=== PATIENT | female | born 1945 | race American Indian/Alaskan Native ===

== ENCOUNTER 2018-10-26 18:28 | Inpatient (IN) | payer MEDICARE ==
--- NOTE | 2018-10-26 18:47 | Event Note ---
ED Screening Note ED Screening Note: pt presents SOB x 1 month chest pain chronic abdominal pain generalized weakness nausea/vomiting no diarrhea PMHx DM, HTN non smoker non drinker no drug use This initial assessment/diagnostic orders/clinical plan/treatment(s) is/are subject to change based on patients health status, clinical progression and re- assessment by fellow clinical providers in the ED. Further treatment and workup at subsequent clinical providers discretion. Patient/guardian urged not to elope from the ED as their condition may be serious if not clinically assessed and managed. Initial orders include: CP protocol
[2018-10-26 19:16] LABS: Basophils # (Auto) 0.1 K/mm3 (0.0-0.1); Basophils % (Auto) 1.4 % (0.0-1.8); Eosinophils # (Auto) 0.1 K/mm3 (0.0-0.4); Eosinophils % (Auto) 1.3 % (0.0-4.3); Hemoglobin 11.6 gm/dl (10.1-14.3); Lymphocytes # (Auto) 2.3 K/mm3 (1.2-5.4); Mean Corpuscular HGB Conc 34 % (30-34); Mean Corpuscular Volume 86 fl (79-97); Monocytes # (Auto) 0.3 K/mm3 (0.0-0.8); Monocytes % (Auto) 5.3 % (0.0-7.3); Platelet Count 234 K/mm3 (140-440); Red Blood Count 3.98 M/mm3 (3.65-5.03); Red Cell Distribution Width 13.9 % (13.2-15.2)
--- NOTE | 2018-10-26 19:53 | XRay Report ---
CHEST 2 VIEWS INDICATION / CLINICAL INFORMATION: Chest pain. Shortness of breath. History of hypertension. COMPARISON: None available. FINDINGS: SUPPORT DEVICES: None. HEART / MEDIASTINUM: There is moderate to severe cardiomegaly with mild aortic atherosclerosis. LUNGS / PLEURA: Bilateral interstitial opacities likely represent atelectasis/edema. No significant p leural effusion. No pneumothorax. ADDITIONAL FINDINGS: No significant additional findings. IMPRESSION: Moderate to severe cardiomegaly with mild edema versus atelectasis. Signer Name: Marc Weber MD Signed: 10/26/2018 7:49 PM Workstation Name: [id number]
[2018-10-26] MEDS ORDERED: LASIX IV ONE (20:22)
[2018-10-26 20:38] LABS: Alanine Aminotransferase 19 units/L (7-56); Albumin 3.6 g/dL (3.9-5); BUN/Creatinine Ratio 13; Blood Urea Nitrogen 16 mg/dL (7-17); Calcium 9.6 mg/dL (8.4-10.2); Hemolysis Index 7
--- NOTE | 2018-10-26 21:21 | Emergency Department Report ---
ED Abdominal Pain HPI - General Chief Complaint: Abdominal Pain Stated Complaint: WEAKNESS/SOB/KNEE/STOMACH PAIN Time Seen by Provider: 10/26/18 18:44 Source: patient Mode of arrival: Wheelchair Limitations: No Limitations - History of Present Illness Initial Comments: patient presents to ER with short of breath, leg swelling, abdominal pain and increase abd girth. She has htn, chf, a-fib, all untreated because she went to vacation in [place] and took herself off her meds. She has a h/o abdominal wall hernia repaired a few years ago but for the past week has noticed some drainage at the site. no fever, chills or night sweats. MD Complaint: abdominal pain -: Gradual Location: periumbilical Radiation: none Migration to: no migration Severity scale (0 -10): 5 Quality: stabbing Consistency: intermittent Improves With: nothing Worsens With: nothing - Related Data Allergies Allergy/AdvReac Type Severity Reaction Status Date / Time hydromorphone [From Dilaudid] Allergy Hives Verified 10/26/18 18:32 morphine Allergy Hives Verified 10/26/18 18:32 ED Review of Systems ROS: Stated complaint: WEAKNESS/SOB/KNEE/STOMACH PAIN Other details as noted in HPI Comment: All other systems reviewed and negative Respiratory: orthopnea, SOB with exertion, SOB at rest Cardiovascular: chest pain, palpitations, dyspnea on exertion, edema Endocrine: denies: flushing Gastrointestinal: abdominal pain, nausea ED Past Medical Hx - Past Medical History Hx Hypertension: Yes Hx Diabetes: Yes - Surgical History Hx Cholecystectomy: Yes Hx Appendectomy: Yes Additional Surgical History: HERNIA TONSILS - Social History Smoking Status: Never Smoker Substance Use Type: None ED Physical Exam - General Limitations: No Limitations General appearance: alert, in no apparent distress - Head Head exam: Present: atraumatic, normocephalic - Eye Eye exam: Present: normal appearance - ENT ENT exam: Present: normal exam, normal orophraynx - Respiratory Respiratory exam: Present: decreased breath sounds - Cardiovascular Cardiovascular Exam: Present: irregular rhythm, JVD (moderate on both sides) - GI/Abdominal GI/Abdominal exam: Present: soft, hernia, other (mild post surgical wound dehiscence) - Extremities Exam Extremities exam: Present: pedal edema (2 plus) - Neurological Exam Neurological exam: Present: alert, oriented X3, CN II-XII intact - Skin Skin exam: Present: warm, dry ED Course Vital Signs 10/26/18 10/26/18 18:45 21:01 Temperature 98.3 F Pulse Rate 78 Respiratory 16 19 Rate Blood Pressure 198/105 [Left] O2 Sat by Pulse 97 Oximetry ED Medical Decision Making - Lab Data Result diagrams: 10/26/18 18:56 10/26/18 18:56 - EKG Data -: EKG Interpreted by Me Rate: tachycardia - EKG Data When compared to previous EKG there are: previous EKG unavailable Interpretation: other (atrial fibrillation) - Radiology Data Radiology results: report reviewed interpreted by me: severe cardiomegaly, mild edema severe cardiomegaly, mild edema ct: abd/pelv abdominal wall abscess. - Medical Decision Making 73 y.o patient presents to ER with short of breath, leg swelling, abdominal pain and increase abd girth. She has htn, chf, a-fib, all untreated because she went to vacation in [place] and took herself off her meds. She has a h/o abdominal wall hernia repaired a few years ago but for the past week has noticed some drainage at the site. no fever, chills or night sweats. several issues were addressed during this ER visits. edema: chf exacerbation, evidence on cxr and bnp, lasix 40mg iv given, [place] [facility] [place]ib: not on any rate medication, not on anticoagulation, needs admission for stabilization, risk straterizations for poss anti coag. not in rvr. abd wall abscess: started on clindamycin, surgery consulted. htn: labile, metoprolol 2.5mg iv given, monitor closely, admit for further txt. Medication non compliance: advised. - Differential Diagnosis acs,abscess, labile htn, chf exacerbation. Critical care attestation.: If time is entered above; I have spent that time in minutes in the direct care of this critically ill patient, excluding procedure time. ED Disposition Clinical Impression: Labile essential hypertension, Atrial fibrillation by electrocardiogram, Abdominal wall abscess at site of surgical wound Acute exacerbation of CHF (congestive heart failure) Qualifiers: Heart failure type: systolic Qualified Code(s): I50.23 - Acute on chronic systolic (congestive) heart failure Disposition: OP ADMIT IP TO THIS HOSP Is pt being admited?: Yes Does the pt Need Aspirin: Yes Condition: Stable Instructions: Abdominal Pain (ED), Hypertension (ED) Referrals: PRIMARY CARE, [Primary Care Provider] - 3-5 Days
--- NOTE | 2018-10-26 22:23 | Cat Scan Report ---
CT ABDOMEN AND PELVIS WITH CONTRAST INDICATION / CLINICAL INFORMATION: abd pain, abd hernia dehiscence. TECHNIQUE: Axial CT images were obtained through the abdomen and pelvis after 100 cc Omnipaque 300 milligrams pe rcent IV contrast. All CT scans at this location are performed using CT dose reduction for ALARA by means of automated exposure control. COMPARISON: None available. FINDINGS: A small fluid collection subcutaneous tissues midline with extensive reticulation of fat an d soft tissue density worrisome for a subcutaneous abscess in a region of previous hernia repair LOWER CHEST: A small right pleural effusion is present. LIVER: No significant abnormality. GALLBLADDER: Previous cholecystectomy BILE DUCTS: No significant abnormality. PANCREAS: No significant abnormality. SPLEEN: No significant abnormality. ADRENALS: No significant abnormality. RIGHT KIDNEY and URETER: No significant abnormality. LEFT KIDNEY and URETER: 0.59 cm calculus lower pole left kidney STOMACH and SMALL BOWEL: No significant abnormality. COLON: Diverticulosis of the descending colon and sigmoid colon present APPENDIX: No significant abnormality. PERITONEUM: No free fluid. No free air. No fluid collection. LYMPH NODES: No significant adenopathy. AORTA and ARTERIES: No significant abnormality. IVC and VEINS: No significant abnormality. URINARY BLADDER: No significant abnormality. REPRODUCTIVE ORGANS: No significant abnormality. ADDITIONAL FINDINGS: None. SKELETAL SYSTEM: Degenerative changes lumbar sacral spine present IMPRESSION: 1. Anterior abdominal wall process worrisome for a small abscess 2. Left renal calculus 3. Diverticulosis sigmoid colon and descending colon 4. Small right pleural effusion 2 left renal calculus 3. Diverticulosis Signer Name: Lj Chavez MD Signed: 10/26/2018 10:19 PM Workstation Name: [id number]
[2018-10-26] MEDS ORDERED: CLEOCIN 600 MG/50 mL 600 MG/50 ML BAG IV ONE (22:29)
[2018-10-26] MEDS ORDERED: LOPRESSOR IV ONE (23:30)
[2018-10-26] MEDS ORDERED: SODIUM CHLORIDE FLUSH SYRINGE 10 ML IV PRN (23:45)
[2018-10-26] MEDS ORDERED: D50W (25GM) Syringe IV PRN (23:45)
--- NOTE | 2018-10-26 23:59 | History and Physical Report ---
History of Present Illness Date of examination: 10/26/18 History of present illness: 73-year-old woman with a history of hypertension, diabetes, CHF, CVA comes to the emergency room with complaints of shortness of breath 2 weeks, PND, orthopnea. She states she was diagnosed with CHF and has not taken any diuretic in 2 years ago. She recently relocated to [place]. Also complaining of abdominal pain 2 weeks, mid abdomen, sharp, intermittent very 15 minutes, no radiation, cannot identify exacerbating or relieving factors. She had a hernia repair in 2017, since then she's had purulent drainage from the surgical site. She states sometimes the drainage is bloody. She has not taken any antibiotic for the drainage from the surgical site, states she keeps the area clean. Located intermittent pain around her surgical site. Denies history of A. fib Review Of Systems: Constitutional: no weight loss, fever, chills Ears, eyes, nose, mouth and throat: no nasal congestion, no nasal discharge, no sinus pressure, blurry vision, diplopia Neck: No neck pain or rigidity. Cardiovascular: No palpitations, chest pain Respiratory: No shortness of breath, cough Gastrointestinal: No hematochezia, abdominal pain Genitourinary : no dysuria, frequency , hematuria Musculoskeletal: no muscle ache , joint pain Integumentary: no rash, no pruritis Neurological: no parathesias, focal weakness Endocrine: no cold or heat intolerance, no polyuria or polydipsia Hematologic/Lymphatic: no easy bruising, no easy bleeding, no gland swelling Allergic/Immunologic: no urticaria, no angioedema. PAST MEDICAL HISTORY:hypertension, diabetes, CHF, CVA PAST SURGICAL HISTORY: Cholecystectomy, appendectomy, hernia repair, tonsillectomy FAMILY HISTORY:hypertension, diabetes SOCIAL HISTORY: Denies tobacco, drugs, alcohol Medications and Allergies Allergies Allergy/AdvReac Type Severity Reaction Status Date / Time hydromorphone [From Dilaudid] Allergy Hives Verified 10/26/18 18:32 morphine Allergy Hives Verified 10/26/18 18:32 Active Meds: Active Medications Acetaminophen (Tylenol) 650 mg PO Q4H PRN PRN Reason: Pain MILD(1-3)/Fever >100.5/[facility] Aspirin (Aspirin) 325 mg PO QDAY [facility]AT Aspirin (Baby Aspirin) 81 mg PO QDAY [facility] Carvedilol (Coreg) 3.125 mg PO BID [facility] Dextrose (D50w (25gm) Syringe) 50 ml IV PRN PRN PRN Reason: Hypoglycemia Enoxaparin Sodium (Lovenox) 30 mg SUB-Q QDAY [facility] Furosemide (Lasix) 40 mg IV BID@0600,1800 [facility] Piperacillin Sod/Tazobactam Sod (Zosyn/Ns 4.5gm/100ml) 4.5 gm in 100 mls @ 200 mls/hr IV Q8HR [facility]AT; Protocol Insulin Human Lispro (Humalog) 0 unit SUB-Q ACHS [facility]; Protocol Lisinopril (Zestril) 2.5 mg PO QDAY [facility] Ondansetron HCl (Zofran) 4 mg IV Q8H PRN PRN Reason: Nausea And Vomiting Sodium Chloride (Sodium Chloride Flush Syringe 10 Ml) 10 ml IV BID [facility] Sodium Chloride (Sodium Chloride Flush Syringe 10 Ml) 10 ml IV PRN PRN PRN Reason: LINE FLUSH Exam - Physical Exam Narrative exam: General Apperance: The patient sitting in bed no acute distress HEENT: Normocephalic, atraumatic. Pupils equally round and reactive to light, extraocular movement intact, and no sclericterus or JVD or thyromegaly or nodule. Neck supple, no carotid bruit, mucous membranes moist, no exudate or erythema Heart: S1-S2, regular is rhythm Lungs: Clear to auscultation bilaterally, breathing comfortable Abdomen: Positive bowel sounds, soft, nontender, nondistended, no organomegaly Extremities: No edema cyanosis clubbing Skin: no rash, nodule, warm and dry Neuro:CN 2 -12 intact, /sensory intact, speech is fluent - Constitutional Vitals: Temp Pulse Resp BP Pulse Ox 98.3 F 78 19 198/105 97 10/26/18 18:45 10/26/18 18:45 10/26/18 21:01 10/26/18 18:45 10/26/18 18:45 Results - Labs CBC & Chem 7: 10/26/18 18:56 10/26/18 18:56 Labs: Abnormal lab results 10/26/18 10/26/18 Range/Units 18:56 18:56 Lymph % (Auto) 41.0 H (13.4-35.0) % Glucose 197 H (65-100) mg/dL NT-Pro-B Natriuret Pep 2408 H (0-900) pg/mL Albumin 3.6 L (3.9-5) g/dL Lipase 6 L (13-60) units/L - Imaging and Cardiology EKG: image reviewed Chest x-ray: image reviewed CT scan - abdomen: report reviewed CT scan - pelvis: report reviewed Assessment and Plan Assessment Acute on chronic CHF Abdominal abscess Atrial fibrillation Hypertension Diabetes History of CVA Plan Admit medicine Diuresed with IV Lasix Her beta srinivas KT inhibitor, aspirin Check cardiac enzymes, echo, TSH, consult cardiology Start full dose Lovenox, check Hba1c Start IV Zosyn, follow cultures, surgery was consulted. Chest fingersticks and initiate insulin sliding scale DVT prophylaxis
[2018-10-27] MEDS ORDERED: LOPRESSOR IV ONE (00:14)
[2018-10-27 00:52] LABS: Creatine Kinase MB 2.6 ng/mL (0.0-4.0)
[2018-10-27] MEDS ORDERED: APRESOLINE IV ONE ×2 (00:57→01:36)
[2018-10-27] MEDS ORDERED: LOVENOX SUB-Q SCH ×2 (01:00→10:00)
[2018-10-27] MEDS ORDERED: APRESOLINE ONE ×2 (01:03→01:46)
[2018-10-27 01:06] LABS: Bilirubin,Urine NEG (Negative); Blood,Urine NEG (Negative); Color,Urine Colorless (Yellow); Protein,Urine <15 mg/dL mg/dL (Negative); Urobilinogen,Urine < 2.0 mg/dL (<2.0); WBC,Urine < 1.0 /HPF (0.0-6.0)
[2018-10-27] MEDS ORDERED: ZOFRAN ONE (02:11)
[2018-10-27] MEDS: ZOFRAN IV PRN (02:15)
[2018-10-27] MEDS: LOVENOX SUB-Q SCH ×6 (05:28→22:08)
[2018-10-27] MEDS: ZOSYN/NS 4.5GM/100ML 4.5 GM/100 ML VIAL IV SCH ×3 (05:29→22:09)
[2018-10-27] MEDS: LASIX IV SCH ×2 (05:30→18:12)
[2018-10-27 05:55] LABS: Basophils # (Auto) 0.1 K/mm3 (0.0-0.1); Basophils % (Auto) 1.3 % (0.0-1.8); Eosinophils # (Auto) 0.1 K/mm3 (0.0-0.4); Eosinophils % (Auto) 1.3 % (0.0-4.3); Hematocrit 33.9 % (30.3-42.9); Hemoglobin 11.4 gm/dl (10.1-14.3); Lymphocytes # (Auto) 2.2 K/mm3 (1.2-5.4); Lymphocytes % (Auto) 38.1 % (13.4-35.0); Mean Corpuscular HGB Conc 34 % (30-34); Mean Corpuscular Volume 86 fl (79-97); Monocytes # (Auto) 0.3 K/mm3 (0.0-0.8); Platelet Count 234 K/mm3 (140-440); Red Blood Count 3.95 M/mm3 (3.65-5.03); Red Cell Distribution Width 13.9 % (13.2-15.2)
[2018-10-27 06:12] LABS: Creatine Kinase MB 2.7 ng/mL (0.0-4.0)
[2018-10-27 06:21] LABS: BUN/Creatinine Ratio 17; Blood Urea Nitrogen 15 mg/dL (7-17); Calcium 9.3 mg/dL (8.4-10.2); Hemolysis Index 9
[2018-10-27] MEDS: HumaLOG SUB-Q SCH ×4 (09:20→22:08)
--- NOTE | 2018-10-27 09:28 | Consultation ---
History of Present Illness Consult date: 10/27/18 Consult reason: congestive heart failure History of present illness: Patient is a 73-year old morbidly obese woman who gives a cardiac history of CHF and atrial fibrillation. Patient reports she is not on any home medications and reports she is no longer followed by [facility] in [place] due to insurance issues. Co-morbidities includes prior CVA, Hypertension and Diabetes. Patient presents to this hospital with multiple complaints. Patient complained of abdominal pain, generalized weakness, shortness of breath and lower extremity edema. A cardiac consultation has been requested for CHF evaluation. Chest x-ray shows cardiomegaly with interstitial edema. Labs shows an elevated BNP. Her ECG is atrial fibrillation with a well controlled ventricular rate. Past History Past Medical History: atrial fib, diabetes, heart failure, hypertension, stroke Medications and Allergies Allergies Allergy/AdvReac Type Severity Reaction Status Date / Time hydromorphone [From Dilaudid] Allergy Hives Verified 10/26/18 18:32 morphine Allergy Hives Verified 10/26/18 18:32 Active Meds: Active Medications Acetaminophen (Tylenol) 650 mg PO Q4H PRN PRN Reason: Pain MILD(1-3)/Fever >100.5/[facility] Aspirin (Baby Aspirin) 81 mg PO QDAY [facility] Carvedilol (Coreg) 3.125 mg PO BID [facility] Dextrose (D50w (25gm) Syringe) 50 ml IV PRN PRN PRN Reason: Hypoglycemia Enoxaparin Sodium (Lovenox) 30 mg SUB-Q Q12HR [facility] Last Admin: 10/27/18 05:28 Dose: Not Given Documented by: Enoxaparin Sodium (Lovenox) 100 mg SUB-Q Q12HR [facility] Last Admin: 10/27/18 05:28 Dose: Not Given Documented by: Furosemide (Lasix) 40 mg IV BID@0600,1800 [facility] Last Admin: 10/27/18 05:30 Dose: 40 mg Documented by: Piperacillin Sod/Tazobactam Sod (Zosyn/Ns 4.5gm/100ml) 4.5 gm in 100 mls @ 200 mls/hr IV Q8HR [facility]; Protocol Last Infusion: 10/27/18 06:12 Dose: Infused Documented by: Insulin Human Lispro (Humalog) 0 unit SUB-Q ACHS [facility]; Protocol Lisinopril (Zestril) 2.5 mg PO QDAY [facility] [place] Ondansetron HCl (Zofran) 4 mg IV Q8H PRN PRN Reason: Nausea And Vomiting Last Admin: 10/27/18 02:15 Dose: 4 mg Documented by: Sodium Chloride (Sodium Chloride Flush Syringe 10 Ml) 10 ml IV BID [facility] Sodium Chloride (Sodium Chloride Flush Syringe 10 Ml) 10 ml IV PRN PRN PRN Reason: LINE FLUSH Physical Examination Vital Signs Temp Pulse Resp BP Pulse Ox 98.3 F 78 16 198/105 97 10/26/18 18:45 10/26/18 18:45 10/26/18 18:45 10/26/18 18:45 10/26/18 18:45 General appearance: no acute distress, obese HEENT: Positive: PERRL Neck: Positive: trachea midline Cardiac: Positive: irregularly irregular Lungs: Positive: Decreased Breath Sounds Neuro: Positive: Grossly Intact, Weakness Extremities: Present: +1 Edema Results 10/27/18 05:47 10/27/18 05:47 Cardiac Enzymes 10/26/18 10/27/18 10/27/18 Range/Units 18:56 00:23 05:47 AST 15 (5-40) units/L CK-MB (CK-2) 2.6 2.7 (0.0-4.0) ng/mL CBC 10/26/18 10/27/18 Range/Units 18:56 05:47 WBC 5.7 5.8 (4.5-11.0) K/mm3 RBC 3.98 3.95 (3.65-5.03) M/mm3 Hgb 11.6 11.4 (10.1-14.3) gm/dl Hct 34.0 33.9 (30.3-42.9) % Plt Count 234 234 (140-440) K/mm3 Lymph # 2.3 2.2 (1.2-5.4) K/mm3 Bailey # 0.3 0.3 (0.0-0.8) K/mm3 Eos # 0.1 0.1 (0.0-0.4) K/mm3 Baso # 0.1 0.1 (0.0-0.1) K/mm3 Comprehensive Metabolic Panel 10/26/18 10/27/18 Range/Units 18:56 05:47 Sodium 139 139 (137-145) mmol/L Potassium 3.8 3.5 L (3.6-5.0) mmol/L Chloride 102.1 99.6 (98-107) mmol/L Carbon Dioxide 23 25 (22-30) mmol/L BUN 16 15 (7-17) mg/dL Creatinine 1.2 0.9 (0.7-1.2) mg/dL Glucose 197 H 228 H (65-100) mg/dL Calcium 9.6 9.3 (8.4-10.2) mg/dL AST 15 (5-40) units/L ALT 19 (7-56) units/L Alkaline Phosphatase 91 (35-129) units/L Total Protein 7.4 (6.3-8.2) g/dL Albumin 3.6 L (3.9-5) g/dL Assessment and Plan Acute systolic heart failure Hypertension Atrial fibrillation Diabetes Prior CVA Noncompliant with medications Obesity Agree with IV diuretics. Sodium/fluid restriction. Echocardiogram for LVEF assessment. Obtain records from [facility] in [place] for cardiac review.
[2018-10-27] MEDS ORDERED: ASPIRIN PO SCH (10:00)
--- NOTE | 2018-10-27 10:26 | Progress Note ---
Assessment and Plan Full consult dictated as below. noted to have chronic draining abd wall sinus tract, approx 2 years, since last ventral hernia repair with mesh. Hx somewhat unclear. r/o entero-cutaneous fistula. rec NPO repeat CT with po contrast heating pad to abd wall erythematous site cult drainage ID eval will follow History of present illness: 73-year-old woman with a history of hypertension, diabetes, CHF, CVA comes to the emergency room with complaints of shortness of breath 2 weeks, PND, orthopnea. She states she was diagnosed with CHF and has not taken any diuretic in 2 years ago. She recently relocated to [place]. Also complaining of abdominal pain 2 weeks, mid abdomen, sharp, intermittent very 15 minutes, no radiation, cannot identify exacerbating or relieving factors. She had a hernia repair in 2017, since then she's had purulent drainage from the surgical site. She states sometimes the drainage is bloody. She has not taken any antibiotic for the drainage from the surgical site, states she keeps the area clean. Located intermittent pain around her surgical site. Denies history of A. fib Review Of Systems: Constitutional: no weight loss, fever, chills Ears, eyes, nose, mouth and throat: no nasal congestion, no nasal discharge, no sinus pressure, blurry vision, diplopia Neck: No neck pain or rigidity. Cardiovascular: No palpitations, chest pain Respiratory: No shortness of breath, cough Gastrointestinal: No hematochezia, abdominal pain Genitourinary : no dysuria, frequency , hematuria Musculoskeletal: no muscle ache , joint pain Integumentary: no rash, no pruritis Neurological: no parathesias, focal weakness Endocrine: no cold or heat intolerance, no polyuria or polydipsia Hematologic/Lymphatic: no easy bruising, no easy bleeding, no gland swelling Allergic/Immunologic: no urticaria, no angioedema. PAST MEDICAL HISTORY:hypertension, diabetes, CHF, CVA PAST SURGICAL HISTORY: Cholecystectomy, appendectomy, hernia repair, tonsillectomy FAMILY HISTORY:hypertension, diabetes SOCIAL HISTORY: Denies tobacco, drugs, alcohol Selected Entries 10/26/18 10/27/18 18:45 02:16 Temperature 98.3 F Pulse Rate 68 Respiratory 18 Rate Blood Pressure 151/98 [Left] Laboratory Tests 10/27/18 05:47 WBC 5.8 Hgb 11.4 Hct 33.9 Objective Vital Signs - 12hr 10/27/18 10/27/18 10/27/18 00:24 01:09 01:48 Pulse Rate 92 H 69 74 Respiratory Rate Blood Pressure 194/119 184/115 181/114 Blood Pressure [Left] O2 Sat by Pulse Oximetry 10/27/18 10/27/18 02:16 08:50 Pulse Rate 68 102 H Respiratory 18 Rate Blood Pressure Blood Pressure 151/98 [Left] O2 Sat by Pulse 98 Oximetry - Labs 10/27/18 05:47 10/27/18 05:47 Diabetes panel 10/26/18 10/26/18 10/27/18 Range/Units 18:56 18:56 05:47 Sodium 139 139 (137-145) mmol/L Potassium 3.8 3.5 L (3.6-5.0) mmol/L Chloride 102.1 99.6 (98-107) mmol/L Carbon Dioxide 23 25 (22-30) mmol/L BUN 16 15 (7-17) mg/dL Creatinine 1.2 0.9 (0.7-1.2) mg/dL Glucose 197 H 228 H (65-100) mg/dL Hemoglobin A1c 7.3 H (4-6) % Calcium 9.6 9.3 (8.4-10.2) mg/dL AST 15 (5-40) units/L ALT 19 (7-56) units/L Alkaline Phosphatase 91 (35-129) units/L Total Protein 7.4 (6.3-8.2) g/dL Albumin 3.6 L (3.9-5) g/dL Thyroid panel 10/27/18 Range/Units 05:47 TSH 1.810 (0.270-4.200) mlU/mL Calcium panel 10/26/18 10/27/18 Range/Units 18:56 05:47 Calcium 9.6 9.3 (8.4-10.2) mg/dL Albumin 3.6 L (3.9-5) g/dL Pituitary panel 10/26/18 10/27/18 10/27/18 Range/Units 18:56 05:47 05:47 Sodium 139 139 (137-145) mmol/L Potassium 3.8 3.5 L (3.6-5.0) mmol/L Chloride 102.1 99.6 (98-107) mmol/L Carbon Dioxide 23 25 (22-30) mmol/L BUN 16 15 (7-17) mg/dL Creatinine 1.2 0.9 (0.7-1.2) mg/dL Glucose 197 H 228 H (65-100) mg/dL Calcium 9.6 9.3 (8.4-10.2) mg/dL TSH 1.810 (0.270-4.200) mlU/mL Adrenal panel 10/26/18 10/27/18 Range/Units 18:56 05:47 Sodium 139 139 (137-145) mmol/L Potassium 3.8 3.5 L (3.6-5.0) mmol/L Chloride 102.1 99.6 (98-107) mmol/L Carbon Dioxide 23 25 (22-30) mmol/L BUN 16 15 (7-17) mg/dL Creatinine 1.2 0.9 (0.7-1.2) mg/dL Glucose 197 H 228 H (65-100) mg/dL Calcium 9.6 9.3 (8.4-10.2) mg/dL Total Bilirubin 0.50 (0.1-1.2) mg/dL AST 15 (5-40) units/L ALT 19 (7-56) units/L Alkaline Phosphatase 91 (35-129) units/L Total Protein 7.4 (6.3-8.2) g/dL Albumin 3.6 L (3.9-5) g/dL
[2018-10-27] MEDS: ZESTRIL PO SCH (10:30)
[2018-10-27] MEDS: COREG PO SCH ×2 (10:31→22:08)
[2018-10-27] MEDS: BABY ASPIRIN PO SCH (10:31)
[2018-10-27] MEDS: SODIUM CHLORIDE FLUSH SYRINGE 10 ML IV SCH ×2 (10:41→22:09)
--- NOTE | 2018-10-27 11:07 | Consultation ---
REASON FOR CONSULTATION: Rule out chronic draining sinus tract of anterior abdominal wall. HISTORY OF PRESENT ILLNESS: The patient is a 73-year-old female who is somewhat of a poor historian and the history is not quite clear. It appears the patient was admitted at this time with a chief complaint of leg swelling and shortness of breath. However, during exam, it was noted that she had a draining sinus tract/abscess in the anterior abdominal wall. On further questioning, the patient appears that this draining sinus tract is chronic, but at least 2 years' duration and has never closed. It appears also that this drainage site began after her last ventral hernia repair with mesh. PAST MEDICAL HISTORY: Pertinent for CHF, diabetes, hypertension and the previously mentioned draining sinus tract. PAST SURGICAL HISTORY: Status post appendectomy, cholecystectomy, tonsillectomy. Also, what appears to have been a colon surgery possibly secondary to cancer (?). The patient is not quite clear on this, which portion of the colon was removed. Also, the patient states she has had incisional hernia repairs x 4 (?) and she is sure that she does have mesh. ALLERGIES: Allergic to MORPHINE AND DILAUDID. MEDICATIONS: Please review chart. FAMILY HISTORY: Diabetes, hypertension and heart disease. SOCIAL HISTORY: Denies any smoking or drinking. PHYSICAL EXAMINATION: GENERAL: At this time reveals the patient to be awake, alert and cooperative. VITAL SIGNS: Show her to be afebrile with a temperature 98.3, blood pressure is 151/98, pulse of 68, respirations of 18. ABDOMEN: Examination of the abdomen reveals multiple old scars. There is an erythematous, somewhat tender area with a draining sinus tract in its midportion. Some purulence was noted from the sinus tract. Her abdomen itself was soft. LABORATORY DATA: Lab work at present includes a CBC, which shows a white count of 5.8, H and H of 11 and 33. Electrolytes are all within normal limits. LFTs are also essentially within normal limits. CT scan of the abdomen has been performed, but unfortunately was without p.o. contrast. I have reviewed the CT with radiologist, Dr. Levine. It is not quite clear whether there is an enterocutaneous fistula in the sinus tract or not. IMPRESSION: 1. At this time is that of a 73-year-old poor historian with a multitude of medical problems including congestive heart failure, diabetes and hypertension. 2. Chronic draining sinus tract after previous abdominal wall ventral hernia repair with mesh to rule out enterocutaneous fistula. RECOMMENDATIONS: At this time, we would keep the patient n.p.o. We will repeat the CAT scan with p.o. contrast to try to elucidate if there is an enterocutaneous fistula present. A heating pad to the abdominal wall site q.i.d. Also culture the drainage. We will obtain ID evaluation. I will follow closely with you. Thank you very much for consultation. JOB# [id number] BETSY/NTS
--- NOTE | 2018-10-27 14:54 | Cat Scan Report ---
CT ABDOMEN AND PELVIS WITHOUT CONTRAST INDICATION / CLINICAL INFORMATION: Nausea and constipation. CT scan performed yesterday revealed a possible cutaneous abscess. TECHNIQUE: Axial CT images were obtained through the abdomen and pelvis without IV contrast. All CT scans at [facility] are performed using CT dose reduction for ALARA by means of automated exposure control. COMPARISON: CT scan dated 10/26/2018 FINDINGS: LOWER CHEST: There is a tiny right pleural effusion. The lung bases appear unchanged. LIVER: No significant abnormality. GALLBLADDER: Cholecystectomy BILE DUCTS: No significant abnormality. PANCREAS: No significant abnormality. SPLEEN: No significant abnormality. ADRENALS: No significant abnormality. RIGHT KIDNEY and URETER: There is contrast media in the renal collecting system from the prior study LEFT KIDNEY and URETER: There is contrast media in the renal collecting system prior study STOMACH and SMALL BOWEL: No change COLON: No change APPENDIX: No significant abnormality. PERITONEUM: No free fluid. No free air. No fluid collection. LYMPH NODES: No significant adenopathy. AORTA and ARTERIES: No significant abnormality. IVC and VEINS: No significant abnormality. URINARY BLADDER: There is air in the urinary bladder which is likely iatrogenic REPRODUCTIVE ORGANS: No significant abnormality. ADDITIONAL FINDINGS: Fluid collection in the subcutaneous fat in the anterior abdominal wall is again noted. This is unchanged from the prior study. No extravasation of contrast is seen. SKELETAL SYSTEM: No change IMPRESSION: 1. Small fluid collection in the anterior abdominal wall appears unchanged. There is no extravasation of contrast seen. Signer Name: Chuck Gould MD Signed: 10/27/2018 2:50 PM Workstation Name: [id number]
--- NOTE | 2018-10-27 15:09 | Consultation ---
History of Present Illness - Reason for Consult Consult date: 10/27/18 Abdominal wall abscess Requesting physician: DIANE WASHBURN - History of Present Illness The patient is a 73-year-old female with hypertension, diabetes mellitus, congestive heart failure, prior CVA, previous hernia repair presented to the emergency room yesterday with complaints of shortness of breath, chest pain, abdominal pain and bilateral leg pain. She has been having some drainage from the lower abdominal wall from prior surgical site, infectious diseases was consulted for the same. Patient reports getting an abdominal hernia repair surgery about 3 years ago at [facility] and since then she has continued to have this nonhealing wound with intermittent drainage from the site . She has followed up with her surgeon who recommended surgical repair however the patient has been refusing. Outside records also reviewed mentioning the same including from [facility]. She otherwise denies any fever or chills. Review of Systems: General: no fevers,chills or rigors HEENT: no new visual disturbance Respiratory: No cough, sputum, hemoptysis or shortness of breath Cardiovascular: No chest pain, syncope Gastrointestinal: No nausea, vomiting or diarrhea at present. Intermittent loose stools. Genitourinary: No dysuria or hematuria Musculoskeletal: No new or worsening neck pain or back pain Neurologic: No headaches, seizures Hematologic: No easy bruising or bleeding Endocrine: No night sweats or acute weight loss Skin: negative for rash, jaundice Psychiatric: No suicidal or homicidal ideation Past History Past Medical History: atrial fib, diabetes, heart failure, hypertension, stroke Medications and Allergies Allergies Allergy/AdvReac Type Severity Reaction Status Date / Time hydromorphone [From Dilaudid] Allergy Hives Verified 10/26/18 18:32 morphine Allergy Hives Verified 10/26/18 18:32 Active Meds: Active Medications Acetaminophen (Tylenol) 650 mg PO Q4H PRN PRN Reason: Pain MILD(1-3)/Fever >100.5/JACKSON Aspirin (Baby Aspirin) 81 mg PO QDAY [facility] Last Admin: 10/27/18 10:31 Dose: 81 mg Documented by: Carvedilol (Coreg) 3.125 mg PO BID [facility] Last Admin: 10/27/18 10:31 Dose: 3.125 mg Documented by: Dextrose (D50w (25gm) Syringe) 50 ml IV PRN PRN PRN Reason: Hypoglycemia Enoxaparin Sodium (Lovenox) 30 mg SUB-Q Q12HR [facility] Last Admin: 10/27/18 10:32 Dose: 30 mg Documented by: Enoxaparin Sodium (Lovenox) 100 mg SUB-Q Q12HR [facility] Last Admin: 10/27/18 10:32 Dose: 100 mg Documented by: Furosemide (Lasix) 40 mg IV BID@0600,1800 [facility] Last Admin: 10/27/18 05:30 Dose: 40 mg Documented by: Piperacillin Sod/Tazobactam Sod (Zosyn/Ns 4.5gm/100ml) 4.5 gm in 100 mls @ 200 mls/hr IV Q8HR [facility]; Protocol Last Infusion: 10/27/18 06:12 Dose: Infused Documented by: Insulin Human Lispro (Humalog) 0 unit SUB-Q ACHS [facility]; Protocol Last Admin: 10/27/18 09:20 Dose: 4 unit Documented by: Lisinopril (Zestril) 2.5 mg PO QDAY [facility] Last Admin: 10/27/18 10:30 Dose: 2.5 mg Documented by: Ondansetron HCl (Zofran) 4 mg IV Q8H PRN PRN Reason: Nausea And Vomiting Last Admin: 10/27/18 02:15 Dose: 4 mg Documented by: Sodium Chloride (Sodium Chloride Flush Syringe 10 Ml) 10 ml IV BID [facility] Last Admin: 10/27/18 10:41 Dose: 10 ml Documented by: Sodium Chloride (Sodium Chloride Flush Syringe 10 Ml) 10 ml IV PRN PRN PRN Reason: LINE FLUSH Physical Examination - Physical Exam Narrative exam: Physical Exam: Constitutional: Alert, cooperative. No acute distress. Obese Head, Ears, Nose: Normocephalic, atraumatic. External ears, nose normal Eyes: Conjunctivae/corneas clear. No icterus. No ptosis. Neck: Supple, no meningeal signs Oral: no thrush Cardiovascular: S1, S2 normal. Respiratory: Good air entry, clear to auscultation bilaterally GI: Soft, obese, small fistula with drainage and surrounding minimal tenderness; bowel sounds normal. No peritoneal signs. Surgical scar present. Musculoskeletal: No pedal edema, no cyanosis. Skin: No rash or abscess Hem/Lymphatic: No palpable cervical or supraclavicular nodes. No lymphangitis Psych: Mood ok. Affect normal Neurological: Awake, alert, oriented. No gross abnormality - Constitutional Vitals: Vital Signs Temp Pulse Resp BP Pulse Ox 98.2 F 78 20 144/76 92 10/27/18 11:31 10/27/18 11:31 10/27/18 11:31 10/27/18 11:31 10/27/18 11:31 Temperature -Last 24 Hours Temperature 98.2 F Temperature 98.4 F Temperature 98.3 F Results - Labs CBC & Chem 7: 10/27/18 05:47 10/27/18 05:47 Labs: Abnormal lab results 10/26/18 10/26/18 10/26/18 Range/Units 18:56 18:56 18:56 Lymph % (Auto) 41.0 H (13.4-35.0) % Potassium (3.6-5.0) mmol/L Glucose 197 H (65-100) mg/dL POC Glucose (70-105) Hemoglobin A1c 7.3 H (4-6) % NT-Pro-B Natriuret Pep 2408 H (0-900) pg/mL Albumin 3.6 L (3.9-5) g/dL Lipase 6 L (13-60) units/L 10/27/18 10/27/18 10/27/18 Range/Units 05:47 05:47 08:20 Lymph % (Auto) 38.1 H (13.4-35.0) % Potassium 3.5 L (3.6-5.0) mmol/L Glucose 228 H (65-100) mg/dL POC Glucose 238 H (70-105) Hemoglobin A1c (4-6) % NT-Pro-B Natriuret Pep (0-900) pg/mL Albumin (3.9-5) g/dL Lipase (13-60) units/L 10/27/18 Range/Units 11:41 Lymph % (Auto) (13.4-35.0) % Potassium (3.6-5.0) mmol/L Glucose (65-100) mg/dL POC Glucose 288 H (70-105) Hemoglobin A1c (4-6) % NT-Pro-B Natriuret Pep (0-900) pg/mL Albumin (3.9-5) g/dL Lipase (13-60) units/L - Imaging and Cardiology CT scan - abdomen: report reviewed, image reviewed (small midline abdominal wall abscess) Assessment and Plan Cultures: 10/26/2018 blood culture: In progress 10/27/2018 wound culture: pending A/P: 73-year-old female with hypertension, diabetes mellitus, congestive heart failure, prior CVA, previous hernia repair, morbid obesity admitted with CHF. 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 She has followed up with her surgeon who recommended surgical repair however the patient has been refusing. Outside records also reviewed mentioning the same including from [facility]. CT with findings of possible abdominal wall abscess. Concern for either infected mesh v/s an underlying enterocutaneous fistula. Antibiotics alone have no role and will not lead to cure, patient does not seem to be interested in surgical cure. Follow up CT with PO contrast. She has no fever or leucocytosis, plan to d/c Zosyn depending on CT results. 2) Acute on chronic CHF: cardiology consulted. 3) Morbid obesity Recs: Follow up CT with PO contrast. She has no fever or leucocytosis, plan to d/c Zosyn depending on CT results. Perez Travis MD, FACP [facility] ([facility] C: [phone] O: [phone] F: [phone]
[2018-10-27] MEDS: TYLENOL PO PRN (20:18)
[2018-10-28] MEDS: LASIX IV SCH (05:48)
[2018-10-28] MEDS: ZOSYN/NS 4.5GM/100ML 4.5 GM/100 ML VIAL IV SCH ×3 (05:48→21:43)
[2018-10-28] MEDS: TYLENOL PO PRN ×2 (09:09→20:13)
[2018-10-28] MEDS: COREG PO SCH (09:12)
[2018-10-28] MEDS: BABY ASPIRIN PO SCH (09:12)
[2018-10-28] MEDS: LOVENOX SUB-Q SCH ×4 (09:12→21:42)
[2018-10-28] MEDS: HumaLOG SUB-Q SCH ×5 (09:13→21:42)
[2018-10-28] MEDS: ZESTRIL PO SCH (11:25)
[2018-10-28] MEDS: SODIUM CHLORIDE FLUSH SYRINGE 10 ML IV SCH ×2 (11:26→21:43)
--- NOTE | 2018-10-28 12:34 | Progress Note ---
Subjective Date of service: 10/28/18 Interval history: Patient seen and examined Echo today shows LVH with preserved systolic function EF 50-55% Telemetry shows sinus pauses intermittent bradycardia will stop carvedilol for now Shortness of breath and weakness - reason for admission Cardiomegaly and pulmonary edema on CXR Congestive heart failure, appears to be HFpEF, EF 50-55% by echo. 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, may need pacemaker evaluation Objective Vital Signs Temp Pulse Resp BP Pulse Ox 10/28/18 11:25 80 125/80 10/28/18 09:13 79 10/28/18 09:12 60 138/74 10/28/18 07:25 99.5 F 60 16 138/74 96 10/28/18 04:28 98.5 F 78 18 163/91 95 10/28/18 00:16 97.9 F 98 H 18 123/52 87 10/27/18 22:00 62 10/27/18 20:46 98 10/27/18 19:22 98.2 F 64 18 157/86 85 10/27/18 16:01 97.9 F 77 18 147/86 98 - Physical Examination General: No Apparent Distress HEENT: Positive: PERRL Neck: Positive: trachea midline Cardiac: Positive: irregularly irregular, S1/S2 Lungs: Positive: clear to auscultation Neuro: Positive: Grossly Intact, Weakness Extremities: Present: +1 Edema - Imaging and Cardiology EKG: image reviewed
--- NOTE | 2018-10-28 13:00 | Progress Note ---
Assessment and Plan Pt feeling "much better". sitting by bedside eating lunch and speaking with daughter on cell phone. neg abd pain. katie diet without complaints. Recommendations discussed with pt and daughter f/u CT with po contrast no evidence of eneterocuatneous fistula. This chronically draining sinus tract most likely secondary to infected mesh. Not an emergent situation since pt has been dealing with this for over 2 years. 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 Pt will be much better served to receive this care in a tertiary center. Discussed with her and daughter that we will attempt to help her coordinate her office appointment with [facility] as an outpt once d/c'ed surgically stable Selected Entries 10/28/18 10/28/18 07:25 11:25 Temperature 99.5 F Pulse Rate 80 Respiratory 16 Rate Blood Pressure 125/80 Laboratory Tests 10/27/18 10/28/18 05:47 07:09 WBC 5.8 POC Glucose 201 H Objective Vital Signs - 12hr 10/28/18 10/28/18 10/28/18 04:28 07:25 09:12 Temperature 98.5 F 99.5 F Pulse Rate 78 60 60 Respiratory 18 16 Rate Blood Pressure 163/91 138/74 138/74 O2 Sat by Pulse 95 96 Oximetry 10/28/18 10/28/18 09:13 11:25 Temperature Pulse Rate 79 80 Respiratory Rate Blood Pressure 125/80 O2 Sat by Pulse Oximetry - Labs 10/27/18 05:47 10/27/18 05:47
--- NOTE | 2018-10-28 16:48 | Progress Note ---
Assessment and Plan 1) Acute exacerbation of CHF (congestive heart failure) Current Visit: Yes Status: Acute Qualifiers: Heart failure type: combined systolic and diastolic Qualified Code(s): I50.43 - Acute on chronic combined systolic (congestive) and diastolic (congestive) heart failure Plan to address problem: IV Diuretics ECHO (2) Abdominal wall abscess at site of surgical wound Current Visit: Yes Status: Acute Plan to address problem: d/w with Dr Ross Patient to be treated with abx Once stable dischrge to Home Dr Ross to send the patient to [place] for removal of Mesh after discharge (3) A-fib Current Visit: Yes Status: Chronic Qualifiers: Atrial fibrillation type: chronic Qualified Code(s): I48.2 - Chronic atrial fibrillation Plan to address problem: Rate controlled (4) HTN (hypertension) Current Visit: Yes Status: Chronic Qualifiers: Hypertension type: essential hypertension Qualified Code(s): I10 - Essential (primary) hypertension Plan to address problem: Cont antihypertensives (5) T2DM (type 2 diabetes mellitus) Current Visit: Yes Status: Chronic Qualifiers: Diabetes mellitus salvage determiner insulin use: unspecified residential insulin use status Plan to address problem: Coverage for now (6) History of CVA (cerebrovascular accident) Current Visit: Yes Status: Chronic Plan to address problem: Supportive care (7) DVT prophylaxis Current Visit: Yes Status: Acute Plan to address problem: On Lovenox and GI prophylaxis Subjective Date of service: 10/28/18 Principal diagnosis: CHF exacerbation and Abd wall pain sec to Mesh infection Interval history: 73-year-old woman with a history of hypertension, diabetes, CHF, CVA comes to the emergency room with complaints of shortness of breath 2 weeks, PND, orthopnea. She states she was diagnosed with CHF and has not taken any diuretic in 2 years ago. She recently relocated to [place]. Also complaining of abdominal pain 2 weeks, mid abdomen, sharp, intermittent very 15 minutes, no radiation, cannot identify exacerbating or relieving factors. She had a hernia repair in 2017, since then she's had purulent drainage from the surgical site. She states sometimes the drainage is bloody. She has not taken any antibiotic for the drainage from the surgical site, states she keeps the area clean. Located intermittent pain around her surgical site. Denies history of A. fib SOB better Objective - Constitutional Vitals: Vital Signs - 12hr 10/28/18 10/28/18 10/28/18 07:25 09:12 09:13 Temperature 99.5 F Pulse Rate 60 60 79 Respiratory 16 Rate Blood Pressure 138/74 138/74 O2 Sat by Pulse 96 Oximetry 10/28/18 10/28/18 11:25 14:23 Temperature 98.2 F Pulse Rate 80 63 Respiratory 16 Rate Blood Pressure 125/80 147/85 O2 Sat by Pulse 96 Oximetry General appearance: Present: mild distress, well-nourished - EENT Eyes: PERRL, EOM intact ENT: hearing intact, clear oral mucosa Ears: bilateral: normal - Neck Neck: supple, normal ROM - Respiratory Respiratory effort: normal Respiratory: bilateral: CTA - Breasts Breasts: normal - Cardiovascular Heart rate: 78 Rhythm: irregularly irregular Heart Sounds: Present: S1 & S2. Absent: gallop, rub Extremities: pulses intact, No edema, normal color, Full ROM - Gastrointestinal General gastrointestinal: Present: soft, tender, distended, normal bowel sounds Localized gastrointestinal: tender: diffuse, guarding: diffuse Rectal Exam: deferred - Genitourinary Female genitourinary: normal - Integumentary Integumentary: clear, warm, dry - Musculoskeletal Musculoskeletal: 1, strength equal bilaterally - Neurologic Neurologic: moves all extremities - Psychiatric Psychiatric: memory intact, appropriate mood/affect, intact judgment & insight - Labs CBC & Chem 7: 10/27/18 05:47 10/27/18 05:47 Labs: Abnormal lab results 10/27/18 10/28/18 10/28/18 Range/Units 21:10 07:09 11:41 POC Glucose 188 H 201 H 182 H (70-105) 10/28/18 Range/Units 16:16 POC Glucose 119 H (70-105)
[2018-10-28] MEDS: ZOFRAN IV PRN (21:40)
[2018-10-28] MEDS: K-DUR PO SCH (21:43)
[2018-10-29] MEDS: TYLENOL PO PRN ×2 (04:44→09:17)
[2018-10-29] MEDS: ZOSYN/NS 4.5GM/100ML 4.5 GM/100 ML VIAL IV SCH ×2 (05:15→13:44)
--- NOTE | 2018-10-29 07:05 | Progress Note ---
Assessment and Plan - Patient Problems (1) Acute exacerbation of CHF (congestive heart failure) Current Visit: Yes Status: Acute Qualifiers: Heart failure type: combined systolic and diastolic Qualified Code(s): I50.43 - Acute on chronic combined systolic (congestive) and diastolic (congestive) heart failure Plan to address problem: IV Diuretics ECHO (2) Abdominal wall abscess at site of surgical wound Current Visit: Yes Status: Acute Plan to address problem: d/w with Dr Ross Patient to be treated with abx Once stable dischrge to Home Dr Ross to send the patient to [place] for removal of Mesh after discharge (3) A-fib Current Visit: Yes Status: Chronic Qualifiers: Atrial fibrillation type: chronic Qualified Code(s): I48.2 - Chronic atrial fibrillation Plan to address problem: Rate controlled (4) HTN (hypertension) Current Visit: Yes Status: Chronic Qualifiers: Hypertension type: essential hypertension Qualified Code(s): I10 - Essential (primary) hypertension Plan to address problem: Cont antihypertensives (5) T2DM (type 2 diabetes mellitus) Current Visit: Yes Status: Chronic Qualifiers: 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 She states she was diagnosed with CHF and has not taken any diuretic in 2 years ago. She recently relocated to [place]. Also complaining of abdominal pain 2 weeks, mid abdomen, sharp, intermittent very 15 minutes, no radiation, cannot identify exacerbating or relieving factors. She had a hernia repair in 2017, since then she's had purulent drainage from the surgical site. She states sometimes the drainage is bloody. She has not taken any antibiotic for the drainage from the surgical site, states she keeps the area clean. Located intermittent pain around her surgical site. Denies history of A. fib Objective - Constitutional Vitals: Vital Signs - 12hr 10/28/18 10/28/18 10/28/18 19:30 22:00 23:24 Temperature 98.9 F 98.4 F Pulse Rate 69 75 89 Respiratory 18 18 Rate Blood Pressure 150/102 139/81 O2 Sat by Pulse 98 96 Oximetry General appearance: Present: mild distress, well-nourished - EENT Eyes: PERRL, EOM intact ENT: hearing intact, clear oral mucosa Ears: bilateral: normal - Neck Neck: supple, normal ROM - Respiratory Respiratory effort: normal Respiratory: bilateral: CTA - Breasts Breasts: normal - Cardiovascular Heart rate: 78 Rhythm: regular Heart Sounds: Present: S1 & S2. Absent: gallop, rub Extremities: pulses intact, No edema, normal color, Full ROM - Gastrointestinal General gastrointestinal: Present: soft, tender, distended, normal bowel sounds Localized gastrointestinal: tender: diffuse, guarding: diffuse - Genitourinary Female genitourinary: normal - Integumentary Integumentary: clear, warm, dry - Musculoskeletal Musculoskeletal: 1, strength equal bilaterally - Neurologic Neurologic: moves all extremities - Psychiatric Psychiatric: memory intact, appropriate mood/affect, intact judgment & insight - Allied health notes Allied health notes reviewed: nursing, case management - Labs CBC & Chem 7: 10/27/18 05:47 10/27/18 05:47 Labs: Abnormal lab results 10/28/18 10/28/18 10/28/18 Range/Units 07:09 11:41 16:16 POC Glucose 201 H 182 H 119 H (70-105) 10/28/18 Range/Units 20:35 POC Glucose 205 H (70-105)
[2018-10-29] MEDS: HumaLOG SUB-Q SCH ×3 (09:01→18:08)
[2018-10-29] MEDS: LOVENOX SUB-Q SCH ×2 (09:14→09:15)
[2018-10-29] MEDS: ZESTRIL PO SCH (09:15)
[2018-10-29] MEDS: BABY ASPIRIN PO SCH (09:15)
[2018-10-29] MEDS: K-DUR PO SCH (09:18)
[2018-10-29] MEDS ORDERED: PERCOCET 5/325 PO PRN ×2 (09:29→10:45)
[2018-10-29] MEDS ORDERED: LASIX IV SCH (10:00)
--- NOTE | 2018-10-29 10:06 | Discharge Summary ---
Providers - Providers Date of Admission: 10/26/18 23:45 Attending physician: JOSEE SAMANO MD 10/26/18 23:16 Consult to Physician [CONS] Stat Comment: Dr. Durand spoke with Dr. Ross @ [id number] Consulting Provider: DIANE ROSS Physician Instructions: wound dehiscence Reason For Exam: abd pain 10/26/18 23:45 Consult to Physician [CONS] Routine Comment: Consulting Provider: COTY ELIZABETH Physician Instructions: Reason For Exam: chf 10/27/18 04:11 Consult to Wound/ET Nurse [CONS] Urgent Reason For Exam: abd wound eval 10/27/18 10:22 Consult to Physician [CONS] Routine Comment: Consulting Provider: AFSANEH JIMENEZ Physician Instructions: Reason For Exam: abd wall abscess r/o fistula Primary care physician: [employer] Hospitalization Condition: Stable Hospital course: 73-year-old woman history of hypertension, diabetes, CHF, CVA. Recently relocated to [place]. The patient presents to the hospital complaining of 2 we eks of the abdominal sharp intermittent pain. 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 She has been recommended to follow up at [facility] where she follows with a surgeon, she most likely needs a major operation which includes resection of bowel and adherent mesh. -Antibiotics were dc per infectious disease Acute on chronic CHF, preserved EF She received Diuretics A. fib; hypercoagulable states, -Patient had sinus pauses and bradycardia, therefore coreg was discontinued by cardiology -Patient is not on anticoagulation at home due to frequent falls, aspirin for stroke prophylaxis Hypertension, type 2 diabetes, history of stroke Continued home medications Disposition: DC-01 TO HOME OR SELFCARE Time spent for discharge: 33 mins Core Measure Documentation - Palliative Care Palliative Care/ Comfort Measures: Not Applicable - Core Measures Any of the following diagnoses?: none Exam - Constitutional Vitals: Temp Pulse Resp BP Pulse Ox 97.5 F L 76 24 139/91 99 10/29/18 07:55 10/29/18 09:15 10/29/18 07:55 10/29/18 09:15 10/29/18 07:55 General appearance: Present: no acute distress, well-nourished - EENT Eyes: Present: PERRL ENT: hearing intact, clear oral mucosa - Neck Neck: Present: supple, normal ROM - Respiratory Respiratory effort: normal Respiratory: bilateral: CTA - Cardiovascular Heart Sounds: Present: S1 & S2. Absent: rub, click - Extremities Extremities: pulses symmetrical, No edema Peripheral Pulses: within normal limits - Abdominal General gastrointestinal: Present: soft, non-tender, non-distended, normal bowel sounds, other (sinus tract noted draining translucent discharge) Female genitourinary: Present: normal - Integumentary Integumentary: Present: clear, warm, dry - Musculoskeletal Musculoskeletal: gait normal, strength equal bilaterally - Psychiatric Psychiatric: appropriate mood/affect, intact judgment & insight - Neurologic Neurologic: CNII-XII intact, moves all extremities Plan Follow up with: DIANE ROSS MD [Staff Physician] - 7 Days KADEN VU MD [Staff Physician] - 7 Days VERA JOSHI MD [Staff Physician] - 7 Days PRIMARY [facility]ARE, [Primary Care Provider] - 3-5 Days Prescriptions: Aspirin EC 325 mg PO QDAY #30 tablet. Sitagliptin Phos/Metformin HCl [Janumet 50-500 mg Tablet] 1 each PO BID #60 tablet Potassium Chloride [K-Dur] 20 meq PO DAILY #30 tablet Furosemide [Lasix TAB] 40 mg PO QDAY #30 tablet oxyCODONE /ACETAMINOPHEN [Percocet 5/325 mg] 1 tab PO Q6H PRN #20 tablet PRN Reason: Pain, Moderate (4-6)
--- NOTE | 2018-10-29 10:49 | Progress Note ---
Subjective Date of service: 10/29/18 Principal diagnosis: CHF exacerbation and Abd wall pain sec to Mesh infection Interval history: Patient seen and examined Echo shows LVH with preserved systolic function EF 50-55% Heart rhythm has improved off carvedilol Shortness of breath and weakness - reason for admission Cardiomegaly and pulmonary edema on CXR Congestive heart failure, appears to be HFpEF, EF 50-55% by echo. 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 Objective Vital Signs Temp Pulse Resp BP Pulse Ox 10/29/18 09:15 76 139/91 10/29/18 07:55 97.5 F L 76 24 139/91 99 10/29/18 04:33 98.1 F 59 L 18 123/54 99 10/29/18 04:29 98.3 F 66 18 138/75 85 10/28/18 23:24 98.4 F 89 18 139/81 96 10/28/18 22:00 75 10/28/18 19:30 98.9 F 69 18 150/102 98 10/28/18 14:23 98.2 F 63 16 147/85 96 10/28/18 11:25 80 125/80 - Physical Examination General: No Apparent Distress HEENT: Positive: PERRL Neck: Positive: trachea midline Cardiac: Positive: Reg Rate and Rhythm, S1/S2 Lungs: Positive: Normal Exam, No Wheeze, Rales, Rhonchi Neuro: Positive: Grossly Intact Extremities: Present: edema (minimal edema) - Imaging and Cardiology EKG: image reviewed
[2018-10-29 12:54] VITALS: BP 127/90
--- NOTE | 2018-10-29 13:04 | Progress Note ---
Assessment and Plan Pt surgically stable without complaints. katie diet well Abd soft, non tender. stable instructed pt to call office when d/c'ed to see if we can help her secure an appt with the [facility] to further address and treat her infected mesh will follow prn Objective Vital Signs - 12hr 10/29/18 10/29/18 10/29/18 04:29 04:33 07:55 Temperature 98.3 F 98.1 F 97.5 F L Pulse Rate 66 59 L 76 Pulse Rate [ Left Posterior Tibial] Pulse Rate [ Right Posterior Tibial] Respiratory 18 18 24 Rate Blood Pressure 138/75 123/54 139/91 O2 Sat by Pulse 85 99 99 Oximetry 10/29/18 10/29/18 10/29/18 09:15 10:00 12:19 Temperature 97.9 F Pulse Rate 76 70 94 H Pulse Rate [ 76 Left Posterior Tibial] Pulse Rate [ 76 Right Posterior Tibial] Respiratory 12 Rate Blood Pressure 139/91 127/90 O2 Sat by Pulse 96 Oximetry - Labs 10/27/18 05:47 10/27/18 05:47
[2018-10-29] MEDS: SODIUM CHLORIDE FLUSH SYRINGE 10 ML IV SCH (13:51)
--- NOTE | 2018-10-29 14:57 | Progress Note ---
Assessment and Plan Cultures: 10/26/2018 blood culture: In progress 10/27/2018 wound culture: pending A/P: 73-year-old female with hypertension, diabetes mellitus, congestive heart failure, prior CVA, previous hernia repair, morbid obesity admitted with CHF. 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 She has followed up with her surgeon who recommended surgical repair however the patient has been refusing. Outside records also reviewed mentioning the same including from [facility]. CT with findings of possible a bdominal wall abscess, CT with PO contrast negative for EC fistula. This is draining spontaneously, ?underlying infected mesh. Would need definitive surgical correction for cure. She has no fever or leucocytosis, will d/c Zosyn. 2) Acute on chronic CHF: cardiology following. 3) Morbid obesity Recs: discontinued Zosyn continue wound care for abdominal wound follow up with surgery in the future for definitive treatment Will sign off. Please call with questions. Perez Travis MD, FACP [facility] C: [phone] O: [phone] F: [phone] Subjective Date of service: 10/29/18 Principal diagnosis: CHF exacerbation and Abd wall pain sec to Mesh infection Interval history: No fever. No leucocytosis. Breathing better. No abdominal pain. Objective - Exam Narrative Exam: Physical Exam: Constitutional: Alert, cooperative. No acute distress. Obese Head, Ears, Nose: Normocephalic, atraumatic. External ears, nose normal Eyes: Conjunctivae/corneas clear. No icterus. No ptosis. Neck: Supple, no meningeal signs Oral: no thrush Cardiovascular: S1, S2 normal. Respiratory: Good air entry, clear to auscultation bilaterally GI: Soft, obese, small fistula with drainage, non tender; bowel sounds normal. No peritoneal signs. Surgical scar present. Musculoskeletal: No pedal edema, no cyanosis. Skin: No rash or abscess Hem/Lymphatic: No palpable cervical or supraclavicular nodes. No lymphangitis Psych: Mood ok. Affect normal Neurological: Awake, alert, oriented. No gross abnormality - Constitutional Vitals: Vital Signs Temp Pulse Resp BP Pulse Ox 97.9 F 94 H 12 127/90 96 10/29/18 12:19 10/29/18 12:19 10/29/18 12:19 10/29/18 12:19 10/29/18 12:19 Temperature -Last 24 Hours Temperature 97.9 F Temperature 97.5 F Temperature 98.1 F Temperature 98.3 F Temperature 98.4 F Temperature 98.9 F - Labs CBC & Chem 7: 10/27/18 05:47 10/27/18 05:47 Labs: Abnormal lab results 10/28/18 10/28/18 10/29/18 Range/Units 16:16 20:35 07:42 POC Glucose 119 H 205 H 175 H (70-105) 10/29/18 Range/Units 12:05 POC Glucose 166 H (70-105)
== END 2018-10-29 18:27 | disposition home or self-care (01) | DRG 919 ==
LOC: ED 18:28 → 4A 23:45
PROVIDERS: ADMIT Internal Medicine; ATTEND Internal Medicine
DX: T85.79XA Infection and inflammatory reaction due to other internal prosthetic devices, implants and grafts, initial encounter (principal); I50.43 Acute on chronic combined systolic (congestive) and diastolic (congestive) heart failure; I48.1 Persistent atrial fibrillation; L02.211 Cutaneous abscess of abdominal wall; Z68.41 Body mass index [BMI] 40.0-44.9, adult; E66.01 Morbid (severe) obesity due to excess calories; I11.0 Hypertensive heart disease with heart failure; E11.9 Type 2 diabetes mellitus without complications; K63.89 Other specified diseases of intestine; Y83.8 Other surgical procedures as the cause of abnormal reaction of the patient, or of later complication, without mention of misadventure at the time of the procedure; Z86.73 Personal history of transient ischemic attack (TIA), and cerebral infarction without residual deficits; Z90.49 Acquired absence of other specified parts of digestive tract; Z83.3 Family history of diabetes mellitus; Z82.49 Family history of ischemic heart disease and other diseases of the circulatory system; Z79.82 Long term (current) use of aspirin; Z79.899 Other long term (current) drug therapy; Z88.6 Allergy status to analgesic agent; Z88.5 Allergy status to narcotic agent; Z88.8 Allergy status to other drugs, medicaments and biological substances; Z91.81 History of falling; Z91.14 Patient's other noncompliance with medication regimen; Y92.89 Other specified places as the place of occurrence of the external cause
CPT/HCPCS: 36415; 71046; 74176; 74177; 80048; 80053; 81001; 82550; 82553; 82962; 83036; 83690; 83880; 84443; 84484; 85025; 87040; 87116; 93005; 93010; 93306; G0378; J0360; J1650; J1815; J1940; J2405; J2543; Q9967

== ENCOUNTER 2020-05-06 12:08 | Emergency (ER) | payer MEDICARE, MEDICAID ==
--- NOTE | 2020-05-06 16:26 | Event Note ---
ED Screening Note ED Screening Note: fall that occurred just [employer] she states she was going to get on the toliet and accidentally slipped and fell she denies any CP, SOB, dizziness prior to the fall or now she has associated right leg pain and back pain no LOC, vomiting, vision changes, hitting her head, blood thinners, numbness, weakness allergy hydromorphone and morphine ttp right foot, knee, hip no c-spine ttp, no step offs, no deformities mild bilateral lumbar paraspinal muscular ttp, no midline t-spine or l-spine ttp, no step offs, no deformities This initial assessment/diagnostic orders/clinical plan/treatment(s) is/are subject to change based on patients health status, clinical progression and re- assessment by fellow clinical providers in the ED. Further treatment and workup at subsequent clinical providers discretion. Patient/guardian urged not to elope from the ED as their condition may be serious if not clinically assessed and managed. Initial orders include: XR, CT
--- NOTE | 2020-05-06 17:14 | Cat Scan Report ---
CT BRAIN: 05/06/2020 INDICATION / CLINICAL INFORMATION: Trauma. COMPARISON: 10/06/2019 FINDINGS: BRAIN/INTRACRANIAL STRUCTURES: Unenhanced CT images of the brain were obtained and compared to the mo st recent prior exam from 10/06/2019. There is been no change. There is no evidence of acute abnormality. Prominent diffuse cerebral atrophy, extensive chronic whit e matter hypoattenuation, and old left frontal cortical ischemic encephalomalacia is again noted. There is no evidence of acute ischemic injury, hemorrhage, or mass. There are no abnormal extra-axial fluid collections. Atherosclerotic vascular calcifications are present in the distal internal carotid arteries and verte bral arteries. EXTRACRANIAL STRUCTURES: Unremarkable. IMPRESSION: No acute abnormality. Extensive chronic and age-related changes. All CT scans at this location are performed using dose reduction to ALARA by means of automated expos ure control. Signer Name: Reji Reyes MD Signed: 05/06/2020 5:10 PM Workstation Name: [id number]
--- NOTE | 2020-05-06 17:22 | Cat Scan Report ---
CT lumbar spine wo con INDICATION: fall, low back pain. TECHNIQUE: Axial CT images of the lumbar spine were obtained. Sagittal and coronal reformatted images were produ trung. All CT scans at this location are performed using CT dose reduction for ALARA by means of automa colette exposure control. COMPARISON: CT abdomen pelvis from 10/03/2019 FINDINGS: ALIGNMENT: Normal alignment. VERTEBRAE: No fracture. Vertebral body heights are preserved. SPONDYLOSIS: Sclerosis of the L2 and L3 vertebral bodies. Irregularity of the L2-L3, and L4-5 endplat es. Overall, the spondylotic changes most pronounced at L2-3, L3-L4, L4-5 are unchanged. Facet arthro karlo most pronounced at L4-5 and L5-S1. SOFT TISSUES: No significant soft tissue abnormality. ADDITIONAL FINDINGS: Unchanged sclerosis and subchondral change in the sacroiliac joints. IMPRESSION: 1. No lumbar spine fracture. Signer Name: Harshil Ziegler MD Signed: 05/06/2020 5:18 PM Workstation Name: [id number]
--- NOTE | 2020-05-06 17:35 | XRay Report ---
RIGHT HIP 2 VIEW(S) INDICATION / CLINICAL INFORMATION: Fall, right hip pain for one day COMPARISON: None available. FINDINGS: BONES / JOINT(S): No acute fracture or subluxation. Moderate bilateral femoroacetabular joint degener ative arthrosis. SOFT TISSUES: No significant abnormality. ADDITIONAL FINDINGS: None. Signer Name: Duglas Flood MD Signed: 05/06/2020 5:30 PM Workstation Name: [id number]
--- NOTE | 2020-05-06 17:36 | XRay Report ---
Right knee 2 views INDICATION: Fall with pain FINDINGS: Severe tricompartmental degenerative osteoarthrosis. There is subchondral irregularity in t he lateral tibial plateau. Significant cartilage loss of the lateral tibial plateau and lateral femor al condyle. Advanced total degenerative change. Moderate large joint effusion. IMPRESSION: Severe tricompartmental degenerative change large joint effusion. There is irregularities articular s urfaces lateral tibial plateau and lateral femoral condyle. Subchondral Reglan lateral tibial plateau . Findings may be degenerative however given joint effusion and subchondral irregularity in the later al tibial plateau MRI could be performed for further evaluation for fracture injury. Right foot 2 views INDICATION: Fall FINDINGS: Degenerative change within fourth toe MTP joint. Degenerative change and base of the great toe. Calcaneal spurring is seen. Diffuse swelling throughout the foot. Signer Name: David Barrientos MD Signed: 05/06/2020 5:32 PM Workstation Name: [id number]
[2020-05-06] MEDS ORDERED: HYDROcodone/ACETAMINOPHEN 5-325 MG TAB PO ONE (18:02)
[2020-05-06] MEDS ORDERED: ONDANSETRON 4 MG/2 ML INJ IM ONE (18:06)
--- NOTE | 2020-05-06 18:11 | Emergency Department Report ---
HPI - General Chief Complaint: Fall Time Seen by Provider: 05/06/20 16:20 - HPI HPI: Room 38 The patient is a 74-year-old female present with a chief complaint of pain after fall. The patient states today she was walking to go to the bathroom when she felt a pain in her right lower extremity that caused her to fall. Patient denies loss of consciousness. Patient states she sustained pain to bilateral knees after the fall. Patient gives her pain a score of 8/10 ED Past Medical Hx - Past Medical History Hx Hypertension: Yes Hx CVA: Yes Hx Congestive Heart Failure: Yes Hx Diabetes: Yes Additional medical history: obese. hpld. hx CVA. afib - Surgical History Hx Cholecystectomy: Yes Hx Appendectomy: Yes Additional Surgical History: HERNIA TONSILS - Family History Family history: no significant - Social History Smoking Status: Never Smoker Substance Use Type: None - Medications Home Medications: Home Medications Medication Instructions Recorded Confirmed Last Taken Type Hydroxyzine HCl [hydrOXYzine] 50 mg PO HS 10/27/18 10/05/19 12/18/18 History Apixaban [Eliquis] 5 mg PO BID #30 10/12/19 Unknown Rx Furosemide [Lasix TAB] 40 mg PO DAILY #30 10/12/19 Unknown Rx Hydroxyzine HCl [hydrOXYzine] 25 mg PO QAM #30 10/12/19 Unknown Rx Insulin NPH/Regular [NovoLIN 70/30] 15 unit SQ BIDDIAB #1 vial 10/12/19 Unknown Rx Potassium Chloride [K-Dur] 20 meq PO DAILY #30 tablet 10/12/19 Unknown Rx amLODIPine 5 mg PO DAILY #30 10/12/19 Unknown Rx oxyCODONE /ACETAMINOPHEN [Percocet 1 tab PO Q6H PRN #20 tablet 10/12/19 Unknown Rx 5/325 mg] HYDROcodone/APAP 5-325 [Dresser 1 - 2 each PO Q6HR PRN #14 tablet 05/06/20 Unknown Rx 5/325] Ibuprofen [Motrin 800 MG tab] 800 mg PO Q8HR PRN #20 tablet 05/06/20 Unknown Rx ED Review of Systems ROS: Stated complaint: RT LEG PAIN/FALL Other details as noted in HPI Constitutional: no symptoms reported Eyes: denies: eye pain ENT: denies: throat pain Respiratory: no symptoms reported Cardiovascular: denies: chest pain Endocrine: no symptoms reported Gastrointestinal: nausea Genitourinary: denies: dysuria Musculoskeletal: arthralgia Neurological: denies: headache Physical Exam - Physical Exam Vital Signs: Vital Signs 05/06/20 05/06/20 17:29 17:31 Temperature 98.7 F Pulse Rate 67 Respiratory 16 18 Rate Blood Pressure 145/79 Blood Pressure 145/79 [Left] O2 Sat by Pulse 97 99 Oximetry Physical Exam: GENERAL: The patient is well-developed well-nourished female lying on stretcher not appearing to be in acute distress. [] HEENT: Normocephalic. Atraumatic. Extraocular motions are intact. Patient has moist mucous membranes. NECK: Supple. Trachea midline CHEST/LUNGS: Clear to auscultation. There is no respiratory distress noted. HEART/CARDIOVASCULAR: Regular. There is no tachycardia. There is no gallop rub or murmur. ABDOMEN: Abdomen is soft, nontender. Patient has normal bowel sounds. There is no abdominal distention. SKIN: There is no rash. There is no edema. There is no diaphoresis. NEURO: The patient is awake, alert, and oriented. The patient is cooperative. The patient has no focal neurologic deficits. The patient has normal speech MUSCULOSKELETAL: Tenderness palpation of bilateral knees, bilateral knee e ffusions. There is no evidence of acute injury. ED Course Vital Signs 05/06/20 05/06/20 17:29 17:31 Temperature 98.7 F Pulse Rate 67 Respiratory 16 18 Rate Blood Pressure 145/79 Blood Pressure 145/79 [Left] O2 Sat by Pulse 97 99 Oximetry - Consultations Consultation #1: 05/06/20 18:19 Images sent to and discussed with orthopedic surgeon Dr. Mccall-no fracture seen. Appears chronic. Recommends knee immobilizer with walker and follow-up in the office ED Medical Decision Making - Radiology Data Radiology results: report reviewed (CT head CT lumbar spine, bilateral knee x- ray, right foot x-ray, right hip x-ray), image reviewed (CT head CT lumbar spine, bilateral knee x-ray, right foot x-ray, right hip x-ray) interpreted by me: Right knee x-ray-no definite fracture seen. Degenerative changes Left knee x-ray-no definite fracture seen. Degenerative changes Right hip x-ray-no acute fracture, no dislocation. Right foot x-ray-no acute fracture - Differential Diagnosis Lower extremity fracture, arthritis, closed head injury, lumbar strain, lum Critical care attestation.: If time is entered above; I have spent that time in minutes in the direct care of this critically ill patient, excluding procedure time. ED Disposition Clinical Impression: Contusion of right knee, Contusion of left knee, Degenerative joint disease of right knee, Degenerative joint disease of left knee Disposition: TO HOME OR SELFCARE Is pt being admited?: No Does the pt Need Aspirin: No Condition: Stable Instructions: Arthritis, [id number], Contusion Additional Instructions: Return to the emergency department should you develop worsening symptoms, inability to tolerate food or liquids, high fever or any other concerns Prescriptions: Ibuprofen [Motrin 800 MG tab] 800 mg PO Q8HR PRN #20 tablet PRN Reason: Pain, Moderate (4-6) HYDROcodone/APAP 5-325 [Dresser 5/325] 1 - 2 each PO Q6HR PRN #14 tablet PRN Reason: Pain Referrals: BLESSING MCCALL MD [Staff Physician] - 3-5 Days (Dr. Mccall is an orthopedic surgeon. Please follow-up with him for further evaluation) Time of Disposition: 19:38
--- NOTE | 2020-05-06 19:28 | XRay Report ---
LEFT KNEE 2 VIEWS INDICATION / CLINICAL INFORMATION: Pain after fall. COMPARISON: None available. FINDINGS: A true lateral view is not presented. There is marked tricompartmental degenerative change. No obviou s fracture is seen. If there is a suspicion of fracture, CT may be helpful for further evaluation Signer Name: Ramirez Flood MD FACR Signed: 05/06/2020 7:24 PM Workstation Name: [id number]
[2020-05-06 19:30] VITALS: BP 127/78
== END 2020-05-06 20:23 | disposition home or self-care (01) ==
LOC: ED 12:08
DX: S80.01XA Contusion of right knee, initial encounter (principal); S80.02XA Contusion of left knee, initial encounter; I11.0 Hypertensive heart disease with heart failure; I50.9 Heart failure, unspecified; R90.82 White matter disease, unspecified; Z86.73 Personal history of transient ischemic attack (TIA), and cerebral infarction without residual deficits; Z79.899 Other long term (current) drug therapy; W18.30XA Fall on same level, unspecified, initial encounter; Y93.89 Activity, other specified; Y92.89 Other specified places as the place of occurrence of the external cause; Y99.8 Other external cause status
CPT/HCPCS: 29505; 70450; 72131; 73502; 73560; 73620; 96372; 99284; J2405